=== PATIENT | male | born 1995 | race Asian ===

== ENCOUNTER 2019-07-06 20:30 | Emergency (ER) | payer BC ==
[~2019-07-06] VITALS: Ht 180.3 cm; Wt 87.5 kg
[2019-07-06 20:36] VITALS: Ht 180.3 cm; Wt 87.5 kg
[2019-07-06 23:21] VITALS: BP 144/95
== END 2019-07-06 23:21 | disposition home or self-care (01) ==
LOC: ED 20:30
DX: S61.213A Laceration without foreign body of left middle finger without damage to nail, initial encounter (principal); I10 Essential (primary) hypertension; X58.XXXA Exposure to other specified factors, initial encounter; Y93.G3 Activity, cooking and baking; Y92.89 Other specified places as the place of occurrence of the external cause; Y99.8 Other external cause status
CPT/HCPCS: 90715; A4570